=== PATIENT | male | born 1985 | race Caucasian/White ===

== ENCOUNTER 2024-09-15 12:02 | Emergency (ER) | payer MEDICAID, OTHER ==
[~2024-09-15] VITALS: Ht 165.1 cm; Wt 68.0 kg
--- NOTE | 2024-09-15 12:17 | ECG ---
[facility] Test Date: 2024-09-15 Test Time: 12:05:43 Pat Name: YAIMA JONES Department: ED Room: Gender: M [employer] Supervisor: GP : [id number] Requested By: RANJIT HALL Order Number: [id number] Reading MD: Measurements Intervals [place] Rate: 50 P: 36 GA: 151 QRS: 21 QRSD: 93 T: -21 QT: 407 QTc: 372 Interpretive Statements Sinus rhythm Inferior infarct, age indeterminate Lateral leads are also involved Please click the below link to view image of tracing.
[2024-09-15 14:26] LABS: Hematocrit 41.0 % (41.0-53.0); Hemoglobin 13.7 g/dL (13.5-17.5); Mean Corpuscular Hemoglobin 30.3 pg (28.0-32.0); Mean Corpuscular Volume 90.7 fL (80.0-100.0); Nucleated Red Blood Cells % 0.1 %
--- NOTE | 2024-09-15 14:30 | DVH ---
CT brain without contrast CLINICAL INDICATION: aloc FINDINGS: The study was performed in a multidetector scanner. This study performed taking axial image s from the skull base up to the vertex. Both brain and bone windows are photographed. Dose lowering techniques have been used including automated exposure control and adjustment of mA and /or KV according to patient size. There is no intraparenchymal hemorrhage or edema. No extra-axial hemorrhage No hydrocephalus or midline shift. Small focal calcification in the right frontal lobe probably a granuloma. Mild cortical prominence There is right-sided paranasal sinus disease IMPRESSION: 1. No acute intracranial pathology. 2. Mild atrophy. Small calcified granuloma right frontal lobe. 3. Right-sided paranasal sinus disease Computed Tomographic Radiation Dosimetry Report: Total CTDI vol = 48 mGy Total DLP = 817 mGy-cm All C T scans at this medical facility are performed using dose modulation techniques as appropriate to a p erformed exam including the following: Automated exposure control was utilized; adjustment of the MA and/or KvP according to patient size; and use of iterative reconstruction technique.
[2024-09-15 14:43] LABS: Alanine Aminotransferase 25 U/L (7-40); Albumin 4.2 g/dL (3.2-4.8); Alkaline Phosphatase 79 U/L (46-116); Anion Gap 5 (5-15); BUN/Creatinine Ratio 7.2 (10.0-20.0); Calcium 10.0 mg/dL (8.7-10.4); Carbon Dioxide 31 mmol/L (20-31); Chloride 105 mmol/L (98-107); Glucose 91 mg/dL (74-106); Sodium 141 mmol/L (136-145); Total Protein 7.5 g/dL (5.7-8.2)
[2024-09-15 14:52] LABS: Bilirubin, Total 0.2 mg/dL (0.2-1.0); Blood Urea Nitrogen 7 mg/dL (9-23); Potassium 3.2 mmol/L (3.5-5.1)
--- NOTE | 2024-09-15 15:22 | ED.PDOC ---
History of Present Illness HPI Comments This is a 39 year old male EMS presenting to the ED with chief complaint of skin lesions. Patient reports that he was woken up from his nap in front of a [employer] by EMS when a bystander had called due to him sleeping. Patient relays that he has been experiencing lesions to his bilateral arms that keep popping up, worse on his left arm. Patient states that he used methamphetamine earlier today before his nap. Patient denies any chest pain, fever, chills, N/V/D, abdominal pain, numbness, or weakness. 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, Medications, Allergies Allergies: Coded Allergies: NO KNOWN ALLERGIES (Unverified , 09/15/24) Information Source: Patient, Emergency Med Personnel Mode of Arrival: EMS Severity: Moderate Timing: Hours Duration: Since onset Prehospital treatment: None Past Medical History PAST MEDICAL HISTORY: Denies Surgical History: Denies all surgeries Family History Family History: Reviewed,noncontributory to illness Social History Smoker: Non-Smoker Alcohol: Denies ETOH Use Drugs: Methamphetamine Lives In: Homeless Constitutional: denies: chills, diaphoresis, fatigue, fever, malaise, sweats, weakness, others EENTM: denies: blurred vision, double vision, ear bleeding, ear discharge, ear drainage, ear pain, ear ringing, eye pain, eye redness, hearing loss, mouth pain, mouth swelling, nasal discharge, nose bleeding, nose congestion, nose pain, photophobia, tearing, throat pain, throat swelling, voice changes, others Respiratory: denies: cough, hemoptysis, orthopnea, SOB at rest, shortness of breath, SOB with excertion, stridor, wheezing, others Cardiovascular: denies: chest pain, dizzy spells, diaphoresis, Dyspnea on exertion, edema, irregular heart beat, left arm pain, lightheadedness, palpitations, PND, syncope, others Gastrointestinal: denies: abdomen distended, abdominal pain, blood streaked bowels, constipated, diarrhea, dysphagia, difficulty swallowing, hematemesis, melena, nausea, poor appetite, poor fluid intake, rectal bleeding, rectal pain, vomiting, others Genitourinary: denies: burning, dysuria, flank pain, frequency, hematuria, incontinence, penile discharge, penile sore, pain, testicle pain, testicle swelling, urgency, others Neurological: denies: dizziness, fainting, headache, left sided numbness, left sided weakness, numbness, paresthesia, pre-existing deficit, right sided numbness, right sided weakness, seizure, speech problems, tingling, tremors, weakness, others Musculoskeletal: denies: back pain, gout, joint pain, joint swelling, muscle pain, muscle stiffness, neck pain, others Integumetry: reports: lesions; denies: bruises, change in color, change in hair/nails, dryness, laceration, lumps, rash, wounds, others Allergic/Immunocompromised: denies: Difficulty Healing, Frequent Infections, Hives, Itching, others Hematologic/Lymphatic: denies: anemia, blood clots, easy bleeding, easy bruising, swollen glands, others Endocrine: denies: excessive hunger, excessive sweating, excessive thirst, excessive urination, flushing, intolerance to cold, intolerance to heat, unexplained weight gain, unexplained weight loss, others Psychiatric: denies: anxiety, bipolar disorder, depression, hopeless, panic disorder, schizophrenia, sleepless, suicidal, others All Other Systems: Reviewed and Negative Physical Exam General Appearance: No Apparent Distress, Normal HEENT: Normal ENT Inspection, Pharynx Normal, TMs Normal Neck: Full Range of Motion, Non-Tender, Normal, Normal Inspection Respiratory: Chest Non-Tender, Lungs Clear, No Accessory Muscle Use, No Respiratory Distress, Normal Breath Sounds Cardiovascular: No Edema, No Murmur, No Gallop, Normal Peripheral Pulses, Regular Rate/Rhythm Breast Exam: Deferred Gastrointestinal: No Organomegaly, Non Tender, No Pulsatile Mass, Normal Bowel Sounds, Soft Genitalia: Deferred Pelvic: Deferred Rectal: Deferred Extremities: Normal inspection, Normal range of motion, Non-tender, No pedal edema Musculoskeletal : Apperance: Normal Neurologic: Alert, No Motor Deficits, Normal Affect, Normal Mood, No Sensory Deficits Cerebellar Function: NOT DONE Reflexes: NOT DONE Skin: Dry, Normal Color, Warm, Other (Multiple ulcerations noted to bilateral upper extremities) Lymphatic: NOT DONE Was a procedure done? Was a procedure done?: No Differential Dx Considerations may include: Altered mental status: Intoxication, stroke, electrolyte abnormality, sepsis, meningitis, encephalitis Eschars on his left upper extremity: MRSA, contact dermatitis, insect bites, ulcers X-Ray, Labs, Meds, VS Vital Signs Date Time Temp Pulse Resp B/P (MAP) Pulse Ox O2 Delivery O2 Flow Rate FiO2 09/15/24 16:01 54 20 98 Room Air 09/15/24 16:01 97.6 54 20 136/84 (101) 98 97.6 09/15/24 12:09 98.0 72 18 138/98 (111) 98 98.0 09/15/24 12:05 50 Lab Test 09/15/24 14:15 Range/Units White Blood Count 7.0 4.4-10.8 10^3/uL Red Blood Count 4.52 4.5-5.90 10^6/uL Hemoglobin 13.7 13.5-17.5 g/dL Hematocrit 41.0 41.0-53.0 % Mean Corpuscular Volume 90.7 80.0-100.0 fL Mean Corpuscular Hemoglobin 30.3 28.0-32.0 pg Mean Corpuscular Hemoglobin Concent 33.4 32.0-36.0 g/dL Red Cell Distribution Width 13.4 11.8-14.3 % Platelet Count 359 140-450 10^3/uL Mean Platelet Volume 6.8 L 6.9-10.8 fL Neutrophils (%) (Auto) 57.9 37.0-80.0 % Lymphocytes (%) (Auto) 23.9 10.0-50.0 % Monocytes (%) (Auto) 10.4 0.0-12.0 % Eosinophils (%) (Auto) 6.6 0.0-7.0 % Basophils (%) (Auto) 1.2 0.0-2.0 % Neutrophils # (Auto) 4.1 1.6-8.6 10 ^3/uL Lymphocytes # (Auto) 1.7 0.4-5.4 10 ^3/uL Monocytes # (Auto) 0.7 0-1.3 10 ^3/uL Eosinophils # (Auto) 0.5 0-0.8 10 ^3/uL Basophils # (Auto) 0.1 0-0.2 10 ^3/uL Nucleated Red Blood Cells 0.1 % Sodium Level 141 136-145 mmol/L Potassium Level 3.2 L 3.5-5.1 mmol/L Chloride Level 105 98-107 mmol/L Carbon Dioxide Level 31 20-31 mmol/L Anion Gap 5 5-15 Blood Urea Nitrogen 7 L 9-23 mg/dL Creatinine 0.97 0.700-1.30 mg/dL Glomerular Filtration Rate Calc 101 >90 mL/min BUN/Creatinine Ratio 7.2 L 10.0-20.0 Serum Glucose 91 74-106 mg/dL Calcium Level 10.0 8.7-10.4 mg/dL Total Bilirubin 0.2 0.2-1.0 mg/dL Aspartate Amino Transferase (AST) 25 13-40 U/L Alanine Aminotransferase (ALT) 25 7-40 U/L Alkaline Phosphatase 79 46-116 U/L Total Protein 7.5 5.7-8.2 g/dL Albumin 4.2 3.2-4.8 g/dL X-Ray, Labs, Meds, VS Comment This 39-year-old male presents to the emergency room secondary to being found sleeping in a [employer] [place] after using methamphetamine. While here, the patient also noted to have multiple ulcers on his left upper extremity. They appeared to be MRSA. The patient denies having history of skin popping or IV drug abuse. He does not have leukocytosis. As such, discharge the patient home with a prescription for Bactroban for his wounds. He will also be discharged home with Keflex and Bactrim for his likely MRSA infection. Wound cultures were taken. He is asked to follow up with PCP in next 1-2 days return to the ER for any new/worrisome/worsening symptoms. Time of 1ST Reevaluation: 14:50 Reevaluation 1ST: Unchanged Patient Education/Counseling: Diagnosis, Treatment Family Education/Counseling: No Family Present SEPSIS Sepsis Screen Date sepsis recognized/suspect: Sep 15, 2024 Time Sepsis recognized/suspect: 1206 Recent Procedure: No On Antibiotic Therapy: No Respiratory Rate >20: No Heart Rate >90: No Temp<36 C (96.8 F) or >38.3 C: No SBP <90 or MAP <65 mmHG: No New Acute Mental Status Change: No Is the patient on CPAP, BIPAP,: No Physician Orders Urinalysis (09/15/24 12:55) Head Without Contrast (09/15/24 12:55) Drug Screen (09/15/24 12:55) Straight Cath. (09/15/24 ) Straight Cath Patient (09/15/24 15:11) Wound Culture W/ Gs (09/15/24 15:29) Cleanse Wound With Wound Clean (09/15/24 15:29) Apply Oil Emulsion Dressing (09/15/24 15:29) Vital Signs Date Time Temp Pulse Resp B/P (MAP) Pulse Ox O2 Delivery O2 Flow Rate FiO2 09/15/24 16:01 54 20 98 Room Air 09/15/24 16:01 97.6 54 20 136/84 (101) 98 97.6 09/15/24 12:09 98.0 72 18 138/98 (111) 98 98.0 09/15/24 12:05 50 Laboratory Tests Test 09/15/24 14:15 White Blood Count 7.0 10^3/uL (4.4-10.8) Departure 1 Departure Time of Disposition: 16:28 Impression: Primary Impression: Abscess Additional Impression: Methamphetamine use Disposition: HOME / SELF CARE / HOMELESS Condition: Fair Discharged With: Self Critical Care Note Critical Care Time?: No Stability Stability form required: No Heart Score Heart Score: Heart Score Response (Comments) Value History N/A 0 EKG N/A 0 Age N/A 0 Risk Factors N/A 0 Troponin N/A 0 Total 0 I personally scribed for RANJIT HALL MD ([email or web address]) on 09/15/24 at 15:22. Electronically submitted by Fili Tavera ([email or web address]). I personally scribed for RANJIT HALL MD ([email or web address]) on 09/15/24 at 15:35. Electronically submitted by Fili Tavera ([email or web address]). RANJIT HALL MD Sep 15, 2024 15:22
[2024-09-15] MEDS ORDERED: BACDST PO (16:31)
[2024-09-15] MEDS ORDERED: CEPH250C PO (16:31)
[2024-09-15] MEDS ORDERED: MUPI2CRE17 EX (16:32)
[2024-09-15 17:44] VITALS: BP 138/89; PULSE 69; RESP 16; TEMP 97.9; O2SAT 99
== END 2024-09-15 17:48 | disposition home or self-care (01) ==
LOC: ER 12:02 → EDBD 12:02 → ER 17:48
DX: L02.414 Cutaneous abscess of left upper limb (principal); L02.413 Cutaneous abscess of right upper limb; F15.90 Other stimulant use, unspecified, uncomplicated; R42 Dizziness and giddiness; Z59.00 Homelessness unspecified
CPT/HCPCS: 36415; 70450; 80053; 82947; 85025; 93005